=== PATIENT | male | born 2000 | race Caucasian/White ===

== ENCOUNTER 2020-09-28 22:18 | Inpatient (IN) | payer OTHER ==
[~2020-09-28] VITALS: Ht 180.3 cm; Wt 124.8 kg
[2020-09-28] MEDS ORDERED: NOVOLOG100 UNIT/2 SQ (22:40)
[2020-09-28] MEDS ORDERED: INSULIN AS100 UNIT/2 SQ (22:40)
--- NOTE | 2020-09-29 02:33 | NUR ---
PATIENT ADMISSION COMPLETED. PATIENT DENIES ANY SOB. PATIENT TITRATED TO 2L VIA NC. ASSESMENT COMPLETED. ORIENTED PATIENT TO FLOOR. PATIENT DENIES ANY QUESTIONS AT THIS TIME. CALL LIGHT IN REACH.
--- NOTE | 2020-09-29 03:00 | NUR ---
SHIFT REPORT RECEIVED FROM DEANNA TRAN. PT RESTING IN BED. CALL LIGHT IN REACH.
--- NOTE | 2020-09-29 03:08 | NUR ---
PATIENTS MEDICATION PER ORDER. PATIENT DENIES ANY NEEDS. ICE WATER PROVIDED. URINAL EMPTIED. PATIENT DENIES ANY SOB. CALL LIGHT IN REACH.
--- NOTE | 2020-09-29 04:56 | NUR ---
IV PUMP ALARMING, RESOLVED. VS AND I&O COMPLETED. NO OTHER NEEDS. CALL LIGHT IN REACH.
--- NOTE | 2020-09-29 05:28 | NUR ---
vs and i&o completed. nc @ 1.5l nc. pt denies sob. no other needs. call light in reach.
--- NOTE | 2020-09-29 08:20 | NUR ---
Attempted to call pt and mom answered his phone. Ok by pt for mom to answer questions. Pt lives in [place] in a 2 story home with mom and dad. 4 steps into home and pt tolerated well. Pt works in [employer] at [employer]. He is active.Does not use any DME. Mom and dad were covid +, but are past isolation. Mom has cough on the phone. Pt does not have pcp, and would like one. Mom states she uses [facility] and would like appt there. Will fax chart and request a provider. Pt plans on dc to home when cleared medically with his parents.
--- NOTE | 2020-09-29 09:00 | NUR ---
REPORT RECEIVED FROM NIGHT RN AND PT. CARE RESUMED. PT. IS ALERT AND ORIENTED. BLOOD GLUCOSE WAS 260 AND PATIENT PROGRAMMED HIS INSULIN PUMP. LUNGS. DIM. IN BASES. PT. DENIES PAIN AND SOB. ON 1.5L O2 NC. 02 SAT IS 94%. PT. EDUCATED ON PRONING AND AGREED TO PRONE AFTER BREAKFAST. DISCUSSED POC AND MEDS. PT. LEFT RESTING IN BED WITH CALL LIGHT IN REACH.
--- NOTE | 2020-09-29 12:54 | NUR ---
Face sheet and H&P faxed to Darcie at [facility] requesting PCP for this pt.
--- NOTE | 2020-09-29 12:55 | NUR ---
MED REC COMPLETE
--- NOTE | 2020-09-29 14:01 | NUR ---
PT. HAS BEEN PRONING INDEPENDENTLY. HE STATES HE IS LESS SOB. BREATHING IS STILL SHALLOW. UP IN THE CHAIR AND ON 1L NC AND 02 SAT. IS 94%. NONPRODUCTIVE COUGH. PT. DEMONSTRATED PROGRAMMING OF INSULIN PUMP AND HOW MUCH INSULIN HE HAS RECEIVED TODAY. PT. LEFT RESTING IN CHAIR WITH CALL LIGHT IN REACH.
--- NOTE | 2020-09-29 17:12 | NUR ---
ROUNDING ON PATIENT. HE IS UP IN THE CHAIR. DENIES NEEDS AT THIS TIME.
--- NOTE | 2020-09-29 17:30 | NUR ---
PT. BLOOD GLUCOSE 298. NOTIFIED ABOUT HYPERGLYCEMIA THROUGHOUT THE DAY. NO NEW ORDERS.
--- NOTE | 2020-09-29 19:25 | NUR ---
SHIFT REPORT RECEIVED FROM KARTHIKEYAN TRAN. PT UP IN CHAIR. NC @ . NO NEEDS AT THIS TIME. CALL LIGHT IN REACH.
--- NOTE | 2020-09-29 21:12 | NUR ---
IN TO GET VITALS, PT TEMP IS SLIGHTLY ELEVATED, PROVDED PT WITH AN Darshan, RN INFORMED AND HEADING TO TO ASSESS PT, ICE WATER REFILLED AT THIS TIME, NO FURTHER NEEDS
--- NOTE | 2020-09-29 21:40 | NUR ---
ASSESSMENT COMPLETED. LUNGS CLEAR BUT DIMINISHED. GCS 15, A&O X4. IV WNL, CDI, FLUSHED WELL. CMS INTACT. ABD SOFT, NONTENDER, BOWEL TONES ACTIVE. CBG 264, PT OWN PUMP PROVIDED 3.4 UNITS. NC @ 1L, SPO2 92%. SNACK PROVIDED. NO OTHER NEEDS AT THIS TIME. CALL LIGHT IN REACH.
--- NOTE | 2020-09-30 00:02 | NUR ---
PT RESTING IN BED, EYES CLOSED. RR EVEN, UNLABORED. NC @ 1L. CALL LIGHT IN REACH.
--- NOTE | 2020-09-30 02:00 | NUR ---
PT RESTING IN BED, EYES CLOSED. RR EVEN, UNLABORED. CALL LIGHT IN REACH.
--- NOTE | 2020-09-30 04:00 | NUR ---
PT RESTING IN BED, EYES CLOSED. RR EVEN, UNLABORED. CALL LIGHT IN REACH.
--- NOTE | 2020-09-30 05:27 | NUR ---
ASSESSMENT, VS AND I&O COMPLETED. LUNGS DIM IN ALL LOBES. IV WNL. LABS DRAWN AND SENT. SPO2 92% ON 1L NC. ICE WATER PROVIDED. NO OTHER NEEDS. CALL LIGHT IN REACH.
--- NOTE | 2020-09-30 08:35 | NUR ---
Scheduled medications administered, assessment complete. Pt insulin pump self- administers 7.3 units of insulin. Pt currently on 1L O2 via NC, tolerating well with no reported SOB. Lung sounds clear, diminished in bases. Pt independent in room, states breakfast ordered, has no needs. Reviewed plan of care, pt is agreeable. Call light in reach.
--- NOTE | 2020-09-30 08:45 | NUR ---
PT AWAKE IN ROOM AND UP IN CHAIR WATCHING TV. CALL LIGHT WITHIN REACH. WHITE BOARD UPDATED. PT IS INDEPENDENT IN THE ROOM. BREAKFAST GIVEN. FRESH ICE WATER GIVEN. NO FURTHER NEEDS AT THIS TIME.
--- NOTE | 2020-09-30 09:25 | NUR ---
Rounded on patient who is standing and walking in room, states feeling well and having no SOB. Vitals taken and stable, afebrile. SP02 96% on 1L, pt removes O2 and drops to 91% after 2 minutes. Returned to 0.5L per pt request to titrate down "slowly", pt back to 94%. This RN to return to monitor shortly
--- NOTE | 2020-09-30 10:30 | NUR ---
Pt condition remains unchanged, discussed plan of care with pt, pt states looking forward to MD rounding and has no needs for this RN
[2020-09-30] MEDS ORDERED: BENZONATATE100 MG PO (12:25)
[2020-09-30] MEDS ORDERED: DEXAMETHASONE6 MG PO (12:26)
--- NOTE | 2020-09-30 13:45 | NUR ---
[facility] called for home 02 setup.
--- NOTE | 2020-09-30 14:40 | NUR ---
Discharge teaching provided to patient who verbalizes understanding and has no questions. VSS, IV catheter removed WNL. Pt able to dress by self. On room air with spo2 @ 91%. Portable oxygen in hand, home set up in progress by Paul. All belongings returned. pt discharged via wheelchair to home, mother to drive home.
--- NOTE | 2020-10-02 09:02 | NUR ---
New PCP confirmed Kelsey Kruger with [facility] for Sepuwt 24 at 4pm.
== END 2020-09-30 14:40 | disposition home or self-care (01) | DRG 177 ==
LOC: ED 22:18 → MS 09-29 00:20
PROVIDERS: ADMIT Internal Medicine; ATTEND Internal Medicine
PROC: 8E0ZXY6 Isolation (ICD-10-PCS; principal; 2020-09-29)
PROC: XW033E5 Introduction of Remdesivir Anti-infective into Peripheral Vein, Percutaneous Approach, New Technology Group 5 (ICD-10-PCS; 2020-09-29)
PROC: 3E0DX3Z Introduction of Anti-inflammatory into Mouth and Pharynx, External Approach (ICD-10-PCS; 2020-09-29)
DX: U07.1 COVID-19 (principal); J96.01 Acute respiratory failure with hypoxia; J12.82 Pneumonia due to coronavirus disease 2019; E10.65 Type 1 diabetes mellitus with hyperglycemia; Z79.4 Long term (current) use of insulin; Z79.899 Other long term (current) drug therapy
CPT/HCPCS: 71045; 80053; 81001; 83605; 85025; 87040; 94760; 94761; 99285-25; J1650; J7030; J7050; J8540

== ENCOUNTER 2024-07-02 20:48 | Emergency (ER) | payer OTHER ==
[~2024-07-02] VITALS: Ht 180.3 cm; Wt 164.8 kg
[~2024-07-02 20:48] MED LIST: BENZONATATE100 MG PO; DEXAMETHASONE6 MG PO; INSULIN AS100 UNIT/2 SQ; NOVOLOG100 UNIT/2 SQ
[2024-07-03 02:00] LABS: BASOPHILS 0.3 % (0-2); EOSINOPHILS 0.7 % (0-6); HEMOGLOBIN 15.8 g/dL (12.0-18.0); LYMPHOCYTES 44.4 % (24-44); MCH 30.6 (27-36); MCHC 35.9 g/dl (30-36); NEUTROPHILS 44.6 % (39-80); PLATELET COUNT 186 K/uL (140-440); RBC 5.18 M/ul (4.3-5.7); RDW 12.7 (10.5-15.0)
[2024-07-03 02:43] LABS: ALBUMIN 3.9 g/dL (3.4-5.0); ALBUMIN/GLOBULIN RATIO 1.15 (1.1-2.4); ANION GAP 10.3 (7-21); BILIRUBIN, TOTAL 0.8 mg/dL (0.2-1.0); BUN/CREATININE RATIO 17.89 (6.0-28.6); CALCIUM 9.2 mg/dL (8.5-10.1); CREATININE, SERUM 0.95 mg/dL (0.70-1.30); MAGNESIUM 1.9 mg/dL (1.8-2.4); POTASSIUM 3.3 mmol/L (3.5-5.1); PROTEIN, TOTAL 7.3 g/dL (6.4-8.2)
[2024-07-03 02:46] LABS: TSH, 3RD GENERATION 1.026 uIU/mL (0.358-3.740)
[2024-07-03 03:16] LABS: BILIRUBIN, URINE NEGATIVE (negative); BLOOD/HGB, URINE NEGATIVE (Negative); KETONE, URINE NEGATIVE (Negative); LEUK ESTERASE, URINE NEGATIVE (negative); NITRITE, URINE NEGATIVE (negative)
[2024-07-03 03:31] LABS: AMPHETAMINES, URINE NEGATIVE (NEGATIVE); BARBITURATES, URINE NEGATIVE (NEGATIVE); BENZODIAZEPINE, URINE NEGATIVE (NEGATIVE); BUPRENORPHINE, URINE NEGATIVE (NEGATIVE); CANNABINOID, URINE NEGATIVE (NEGATIVE); COCAINE, URINE NEGATIVE (NEGATIVE); ECSTASY, URINE NEGATIVE (NEGATIVE); FENTANYL, URINE NEGATIVE (NEGATIVE); METHADONE, URINE NEGATIVE (NEGATIVE); OPIATES, URINE NEGATIVE (NEGATIVE); OXYCODONE, URINE NEGATIVE (NEGATIVE); PHENCYCLIDINE, URINE NEGATIVE (NEGATIVE)
[2024-07-03] MEDS ORDERED: POTASSIUM CHLO20 ME2 PO (03:45)
[2024-07-03] MEDS ORDERED: POTASSIUM CHLORIDE 10 MEQ TABCR PO ONE (03:45)
[2024-07-03 03:58] VITALS: BP 135/88
--- NOTE | 2024-07-04 20:46 | EKG ---
[facility] [address] [place] [address] Signed Sinus rhythm with marked sinus arrhythmia Otherwise normal ECG No previous ECGs available Confirmed by Carlota Anderson MD () on 07/04/2024 8:46:03 PM Electronically Signed By: CARLOTA ANDERSON MD 07/04/242045 PATIENT NAME: YOLIS ORTEGA Taylor Electrocardiogram DATE OF : [birth year] PHYSICIAN: CARLOTA ANDERSON MD REPORT #: [id number] REPORT IS CONFIDENTIAL AND NOT TO BE RELEASED WITHOUT AUTHORIZATION
== END 2024-07-03 04:02 | disposition home or self-care (01) ==
LOC: ED 20:48
PROVIDERS: Internal Medicine
DX: R00.2 Palpitations (principal); E87.6 Hypokalemia; E11.9 Type 2 diabetes mellitus without complications; Z79.4 Long term (current) use of insulin
CPT/HCPCS: 36415; 80053; 80307; 81003; 83735; 84443; 84484; 85025; 93005; 93010; 93242; 93244; 99285; A9270